=== PATIENT | female | born 1965 | race Caucasian/White ===

== ENCOUNTER → 2019-08-20 | Outpatient (CLI) | payer OTHER | END | disposition home or self-care (01) | LOC: RAH 14:48 | PROVIDERS: ATTEND Family Medicine | DX: M47.26 Other spondylosis with radiculopathy, lumbar region (principal); M51.16 Intervertebral disc disorders with radiculopathy, lumbar region; G90.521 Complex regional pain syndrome I of right lower limb; G90.09 Other idiopathic peripheral autonomic neuropathy | CPT/HCPCS: 72148 ==

== ENCOUNTER 2019-10-17 13:00 | Inpatient (IN) | payer OTHER ==
[~2019-10-17] VITALS: Ht 170.2 cm; Wt 76.2 kg
[2019-10-18] MEDS ORDERED: ESOM40CA54 PO (15:18)
[2019-10-18] MEDS ORDERED: FURO-151 PO (15:18)
[2019-10-18] MEDS ORDERED: ESCI5TAB PO (15:18)
[2019-10-18] MEDS ORDERED: GABA100C PO (15:18)
[2019-10-18] MEDS ORDERED: LEVO100T6 PO (15:18)
[2019-10-18] MEDS ORDERED: POTA-79 PO (15:18)
[2019-10-19] VITALS (24 sets, daily range): BP systolic 81–144; BP diastolic 38–96
[2019-10-19] MEDS ORDERED: LACTATED RINGERS 1000ML 1,000 ML IV ONE (06:12)
[2019-10-19] MEDS ORDERED: CEFAZOLIN SODIUM 1 GM VIAL ONE ×2 (06:44→11:10)
[2019-10-19] MEDS ORDERED: DURAMORPH PF1 MG/ML 10ML AMP IV ONE (06:45)
[2019-10-19] MEDS ORDERED: THROMBIN-JMI 20000 UNIT KIT TP ONE (06:45)
[2019-10-19] MEDS ORDERED: BUPIVACAINE/EPI/PF 0.25% 30ML VIAL IJ ONE (06:45)
[2019-10-19] MEDS ORDERED: LIDOCAINE PF 2% 5ML ABBOJECT ONE (06:58)
[2019-10-19] MEDS ORDERED: ONDANSETRON HCL 4 MG/2 ML VIAL ONE (06:59)
[2019-10-19] MEDS ORDERED: GLYCOPYRROLATE 1 MG/5 ML SYRINGE ONE (06:59)
[2019-10-19] MEDS ORDERED: DEXAMETHASONE SOD PHOSPHATE 10MG/ML 1ML VIAL ONE ×2 (06:59→07:10)
[2019-10-19] MEDS ORDERED: NEOSTIGMINE 5MG/5ML SYR IV ONE (06:59)
[2019-10-19] MEDS ORDERED: MIDAZOLAM HCL 1 MG/ML 2ML VIAL ONE ×2 (06:59→10:56)
[2019-10-19] MEDS ORDERED: PROPOFOL 10 MG/ML 20ML VIAL IV ONE (06:59)
[2019-10-19] MEDS ORDERED: ROCURONIUM 10MG/1ML SYR 10 MG/ML ML ONE (07:00)
[2019-10-19] MEDS ORDERED: FENTANYL CITRATE PF 50 MCG/1 ML 2ML VIAL ONE ×5 (07:00→10:54)
[2019-10-19] MEDS ORDERED: PROPOFOL 1000 MG/100 ML 100 ML IV ONE ×2 (07:03→10:10)
[2019-10-19] MEDS: CEFAZOLIN SODIUM 1 GM VIAL ONE ×3 (07:26→11:30)
[2019-10-19] MEDS ORDERED: EPHEDRINE SULFATE 50 MG/ML AMPULE ONE (08:06)
[2019-10-19] MEDS ORDERED: FENTANYL CITRATE PF 50 MCG/1 ML 5ML AMP IV ONE (11:28)
[2019-10-19] MEDS: DEXAMETHASONE SOD PHOSPHATE 4 MG/ML 1ML VIAL IVP SCH ×3 (13:00→22:27)
[2019-10-19] MEDS ORDERED: PROMETHAZINE HCL 25 MG/ML 1ML AMPULE IM PRN (13:00)
[2019-10-19] MEDS ORDERED: SODIUM CHLORIDE 0.9% 10 ML VIAL IVP PRN (13:00)
[2019-10-19] MEDS: CEFAZOLIN SODIUM 1 GM VIAL IVP SCH ×2 (13:00→20:39)
[2019-10-19] MEDS ORDERED: MORPHINE SULFATE 2 MG/ML 1ML SYG IVP PRN (13:00)
[2019-10-19] MEDS: CITALOPRAM 20 MG TABLET PO SCH (13:19)
[2019-10-19] MEDS: POTASSIUM CHLORIDE 20 MEQ ERTAB PO SCH (13:37)
--- NOTE | 2019-10-19 14:51 | NUR ---
TRAN PLAN VISITED WITH PATIENT IN RECOVERY AND IN ROOM 313 PATIENT GROGGY POST PROCEDURE. JIM WILL CONTINUE TO FOLLOW. Addendum: 10/19/19 at 1451 by BOYD WALLIS RN CM Amended: Links added.
[2019-10-19] MEDS: PANTOPRAZOLE SODIUM 40 MG TABLET.DR PO SCH (15:22)
[2019-10-19] MEDS: HYDROCODONE/ACETAMINOPHEN 5/325 MG TAB PO PRN ×2 (15:22→22:38)
[2019-10-19] MEDS: LACTATED RINGERS 1000ML 1,000 ML IV SCH (15:25)
--- NOTE | 2019-10-19 16:09 | NUR ---
DCP CM met with pt discussed dc plans. Pt is independent prior to surgery, lives at home w/spouse. Denies any equipments/services. Feels safe to go back home, still drives, spouse able to assist with transportation and needs as necessary. DC plan to home once stable. CM to cont to follow up. Addendum: 10/19/19 at 1609 by CHRISTY OVALLES LVN CM Amended: Links added.
[2019-10-19] MEDS: GABAPENTIN 100 MG CAPSULE PO SCH (20:40)
[2019-10-20] MEDS: LACTATED RINGERS 1000ML 1,000 ML IV SCH (02:10)
[2019-10-20 03:29] VITALS: BP 105/50
[2019-10-20] MEDS: DEXAMETHASONE SOD PHOSPHATE 4 MG/ML 1ML VIAL IVP SCH ×2 (04:29→12:24)
[2019-10-20] MEDS: HYDROCODONE/ACETAMINOPHEN 5/325 MG TAB PO PRN (04:30)
[2019-10-20] MEDS: CEFAZOLIN SODIUM 1 GM VIAL IVP SCH ×2 (05:00→07:57)
--- NOTE | 2019-10-20 05:20 | NUR ---
HARMON CATHETER REMOVED PER MD ORDERS. PT TOLERATED WELL. PT IS DTV BY 1100.
[2019-10-20] MEDS ORDERED: LEVOTHYROXINE 100 MCG TABLET PO SCH (07:30)
[2019-10-20 08:13] VITALS: BP 106/57
[2019-10-20] MEDS: CITALOPRAM 20 MG TABLET PO SCH (08:19)
[2019-10-20] MEDS: POTASSIUM CHLORIDE 20 MEQ ERTAB PO SCH (08:21)
[2019-10-20] MEDS: GABAPENTIN 100 MG CAPSULE PO SCH (08:22)
[2019-10-20] MEDS: PANTOPRAZOLE SODIUM 40 MG TABLET.DR PO SCH (08:22)
[2019-10-20] MEDS ORDERED: FUROSEMIDE 40 MG TABLET PO SCH (09:00)
== END 2019-10-20 12:25 | disposition home or self-care (01) | DRG 517 ==
LOC: EDSTATUS 13:00 → DAHIP 10-19 05:55 → 3CH 10-19 14:14
PROVIDERS: ADMIT Neurological Surgery; ATTEND Neurological Surgery
PROC: 01BB0ZZ Excision of Lumbar Nerve, Open Approach (ICD-10-PCS; principal; 2019-10-19 07:22)
PROC: 01NB0ZZ Release Lumbar Nerve, Open Approach (ICD-10-PCS; 2019-10-19 07:22)
PROC: 4A11X4G Monitoring of Peripheral Nervous Electrical Activity, Intraoperative, External Approach (ICD-10-PCS; 2019-10-19 07:22)
PROC: BR131ZZ Fluoroscopy of Lumbar Disc(s) using Low Osmolar Contrast (ICD-10-PCS; 2019-10-19 07:22)
DX: D36.10 Benign neoplasm of peripheral nerves and autonomic nervous system, unspecified (principal); E03.9 Hypothyroidism, unspecified
CPT/HCPCS: 72020; 76998; A4344; G0378; J0690; J1100; J2001; J2250; J2274; J2405; J2704; J2710; J3010; J3490; J7030; J7120

== ENCOUNTER → 2019-12-14 | Outpatient (CLI) | payer OTHER ==
[~2019-12-14] MED LIST: ESCI5TAB PO; ESOM40CA54 PO; FURO-151 PO; GABA100C PO; LEVO100T6 PO; POTA-79 PO
== END | disposition home or self-care (01) ==
LOC: RAH 08:27
PROVIDERS: ATTEND Family Medicine
DX: M19.012 Primary osteoarthritis, left shoulder (principal); M75.02 Adhesive capsulitis of left shoulder; M75.82 Other shoulder lesions, left shoulder
CPT/HCPCS: 73221

== ENCOUNTER → 2022-02-14 | Outpatient (CLI) | payer OTHER | END | disposition home or self-care (01) | LOC: RAH 13:08 | PROVIDERS: ATTEND Nurse Practitioner | DX: M75.111 Incomplete rotator cuff tear or rupture of right shoulder, not specified as traumatic (principal); S43.432A Superior glenoid labrum lesion of left shoulder, initial encounter; S43.432S Superior glenoid labrum lesion of left shoulder, sequela; M77.8 Other enthesopathies, not elsewhere classified; X58.XXXA Exposure to other specified factors, initial encounter; Y93.89 Activity, other specified; Y92.89 Other specified places as the place of occurrence of the external cause; Y99.8 Other external cause status; M19.012 Primary osteoarthritis, left shoulder; M19.011 Primary osteoarthritis, right shoulder; X58.XXXS Exposure to other specified factors, sequela | CPT/HCPCS: 73221 ==

== ENCOUNTER → 2022-04-07 | Outpatient (CLI) | payer OTHER | END | disposition home or self-care (01) | LOC: RAH 11:21 | PROVIDERS: ATTEND Nurse Practitioner | DX: M47.22 Other spondylosis with radiculopathy, cervical region (principal) | CPT/HCPCS: 72141 ==

== ENCOUNTER → 2023-06-05 | Outpatient (CLI) | payer OTHER ==
[~2023-06-05] MED LIST changes: -ESCI5TAB PO; -FURO-151 PO; -GABA100C PO; +GADOTERATE MEGLUMINE 10 MMOL/20 ML VIAL IV ONE; +HYDR-4060 PO; +LINA290C PO; +LYRICA PO; -POTA-79 PO; +RIME75TA PO; +TRAM100T40 PO
== END | disposition home or self-care (01) ==
LOC: RAH 13:52
PROVIDERS: ATTEND Anesthesiology Pain Medicine
DX: M47.26 Other spondylosis with radiculopathy, lumbar region (principal); M96.1 Postlaminectomy syndrome, not elsewhere classified; M51.36 Other intervertebral disc degeneration, lumbar region; M51.16 Intervertebral disc disorders with radiculopathy, lumbar region; M48.061 Spinal stenosis, lumbar region without neurogenic claudication
CPT/HCPCS: 72158; A9575

== ENCOUNTER → 2023-07-27 | Outpatient (CLI) | payer OTHER ==
[~2023-07-27] MED LIST changes: -GADOTERATE MEGLUMINE 10 MMOL/20 ML VIAL IV ONE
== END | disposition home or self-care (01) ==
LOC: RAH 09:43
PROVIDERS: ATTEND Internal Medicine Cardiovascular Disease
DX: Z13.6 Encounter for screening for cardiovascular disorders (principal)
CPT/HCPCS: 75571

== ENCOUNTER → 2023-12-22 | Outpatient (CLI) | payer OTHER ==
[~2023-12-22] MED LIST changes: -ESOM40CA54 PO; +ESOM40CA66 PO
== END | disposition home or self-care (01) ==
LOC: RAH 13:42
PROVIDERS: ATTEND Neurological Surgery
DX: Z13.820 Encounter for screening for osteoporosis (principal); M85.88 Other specified disorders of bone density and structure, other site; G89.4 Chronic pain syndrome; E03.9 Hypothyroidism, unspecified; M79.605 Pain in left leg; Z78.0 Asymptomatic menopausal state
CPT/HCPCS: 72131; 77080

== ENCOUNTER → 2025-05-17 | Outpatient (CLI) | payer OTHER ==
[~2025-05-17] MED LIST changes: -TRAM100T40 PO; +TRAM100T56 PO
== END | disposition home or self-care (01) ==
LOC: RAH 10:29
PROVIDERS: ATTEND Family Medicine
DX: Z12.31 Encounter for screening mammogram for malignant neoplasm of breast (principal)
CPT/HCPCS: 77067